=== PATIENT | female | born 2000 | race Hispanic/Latino ===

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

== ENCOUNTER 2022-01-26 05:30 | Inpatient (IN) | payer OTHER ==
[2022-01-26] MEDS ORDERED: Ibuprofen 800 MG TAB PO PRN (08:19)
[2022-01-26] MEDS ORDERED: Promethazine HCl 25 MG/ML VIAL IM PRN ×2 (08:19→20:37)
[2022-01-26] MEDS ORDERED: Diphenoxylate HCl/Atropine Tablet PO PRN (08:19)
[2022-01-26] MEDS ORDERED: NS w/ Oxytocin 30 units 500 ML IV SCH ×3 (08:19→20:37)
[2022-01-26] MEDS ORDERED: Lidocaine 1% (PF) 30 ML VIAL SC PRN (08:19)
[2022-01-26] MEDS ORDERED: Butorphanol Tartrate 1 MG/ML VIAL SLOW IVP PRN (08:19)
[2022-01-26] MEDS ORDERED: Acetaminophen 500 MG TAB PO PRN (08:19)
[2022-01-26] MEDS ORDERED: Methylergonovine 0.2 MG/ML VIAL IM PRN (08:19)
[2022-01-26] MEDS ORDERED: Misoprostol 200 MCG TAB PR PRN (08:19)
[2022-01-26] MEDS ORDERED: Ondansetron PF 4 MG/2 ML Vial IVP PRN ×2 (08:19→20:37)
[2022-01-26] MEDS ORDERED: Lactated Ringer's 1,000 ML IV SCH (08:19)
[2022-01-26] MEDS ORDERED: hydrALAZINE 20 MG/ML VIAL SLOW IVP PRN ×2 (08:19→20:37)
[2022-01-26] MEDS ORDERED: Carboprost 250 MCG/ML AMP IM PRN (08:19)
[2022-01-26] MEDS ORDERED: HYDROcodone/Acetaminophen 5/325 mg Tablet PO PRN ×2 (08:19→20:37)
[2022-01-26] MEDS ORDERED: NS w/ Oxytocin 30 units 500 ML ONE (08:27)
[2022-01-26 08:55] LABS: Hemoglobin 9.3 g/dL (12.0-15.5); Mean Corpuscular HGB CONC 31.5 g/dL (32.0-36.0); Mean Corpuscular Hemoglobin 23.7 pg (27.0-33.0); Mean Corpuscular Volume 75.3 fl (81.6-98.3); Mean Platelet Volume 9.9 fl (7.4-10.4); Platelet Count 341 10x3/uL (150-450); RBC Distribution Width 16.1 % (11.5-14.5); Red Blood Cell (RBC) Count 3.92 10x6/uL (3.90-5.03)
[2022-01-26 09:23] LABS: Hep B Surf Ag Non-Reactive S/CO (NonReactive); Syphilis Antibody Nonreactive (Nonreactive); Syphilis Antibody Index 0.05 S/CO (<1.00 Non-Reactive)
[2022-01-26 09:28] VITALS: BMI 31.4
[2022-01-26 09:38] LABS: HBSAg Index 0.18 S/CO (0-0.99)
[2022-01-26] MEDS ORDERED: Fentanyl 2 mcg/Bup 0.1% Cadd 100 ML ONE (14:05)
[2022-01-26] MEDS ORDERED: Bisacodyl 10 MG SUPP PR PRN (20:37)
[2022-01-26] MEDS ORDERED: Milk Of Magnesia 30 ML UDCUP PO PRN (20:37)
[2022-01-26] MEDS ORDERED: Lanolin Ointment 7 GM TUBE TOP PRN (20:37)
[2022-01-26] MEDS ORDERED: diphenhydrAMINE 25 MG CAP PO PRN (20:37)
[2022-01-26] MEDS ORDERED: Benzocaine-Menthol 82.5 ML CAN TOP PRN (20:37)
[2022-01-26] MEDS ORDERED: Boostrix 0.5 ML (Tdap) VIAL IM ONE (20:37)
[2022-01-26] MEDS ORDERED: Ferrous Sulfate 325 MG TAB PO SCH (21:00)
[2022-01-26] MEDS: Docusate 100 MG CAP PO SCH (21:08)
[2022-01-26] MEDS: Ibuprofen 800 MG TAB PO SCH (21:08)
[2022-01-27] MEDS: Ibuprofen 800 MG TAB PO SCH ×3 (05:57→21:25)
[2022-01-27] MEDS: Prenatal Vitamin 1 TAB PO SCH (08:15)
[2022-01-27] MEDS: Docusate 100 MG CAP PO SCH ×2 (08:15→21:25)
[2022-01-27] MEDS: Ferrous Sulfate 325 MG TAB PO SCH ×2 (08:15→16:17)
[2022-01-27 16:20] VITALS: TEMP 98.1
[2022-01-28] MEDS: Ibuprofen 800 MG TAB PO SCH ×2 (06:01→14:03)
[2022-01-28] MEDS: Docusate 100 MG CAP PO SCH (08:25)
[2022-01-28] MEDS: Ferrous Sulfate 325 MG TAB PO SCH (08:25)
[2022-01-28] MEDS: Prenatal Vitamin 1 TAB PO SCH (08:25)
[2022-01-28 09:46] VITALS: BP 114/67
== END 2022-01-28 17:32 | disposition home or self-care (01) | DRG 807 ==
LOC: CSHLD 07:14 → CSHPP 19:05
PROVIDERS: ADMIT Family Medicine; ATTEND Family Medicine
PROC: 10E0XZZ Delivery of Products of Conception, External Approach (ICD-10-PCS; principal; 2022-01-26)
PROC: 10907ZC Drainage of Amniotic Fluid, Therapeutic from Products of Conception, Via Natural or Artificial Opening (ICD-10-PCS; 2022-01-26)
PROC: 3E033VJ Introduction of Other Hormone into Peripheral Vein, Percutaneous Approach (ICD-10-PCS; 2022-01-26)
PROC: 0UQGXZZ Repair Vagina, External Approach (ICD-10-PCS; 2022-01-26)
DX: O99.824 Streptococcus B carrier state complicating childbirth (principal); Z37.0 Single live birth; O71.4 Obstetric high vaginal laceration alone; Z3A.39 39 weeks gestation of pregnancy
CPT/HCPCS: 85027; 86780; 86850; 86900; 86901; 87340; J0595; J2590